=== PATIENT | female | born 1985 | race Caucasian/White ===

== ENCOUNTER → 2018-05-12 | Outpatient (CLI) | payer OTHER ==
[~2018-05-12] MED LIST: PREN-127 PO
[2018-05-12 11:58] LABS: PLATELET COUNT, AUTOMATED 362 K/uL (150-450)
== END ==
LOC: LAB 07:56
PROVIDERS: ATTEND Student in an Organized Health Care Education/Training Program
DX: Z34.01 Encounter for supervision of normal first pregnancy, first trimester (principal); R82.79 Other abnormal findings on microbiological examination of urine
CPT/HCPCS: 36415; 81001; 85025; 86592; 86703; 86762; 86850; 86900; 86901; 87088; 87340

== ENCOUNTER → 2018-05-22 | Outpatient (CLI) | payer OTHER | LOC: LAB 08:58 | PROVIDERS: ATTEND Student in an Organized Health Care Education/Training Program | DX: Z34.91 Encounter for supervision of normal pregnancy, unspecified, first trimester (principal) | CPT/HCPCS: 87491; 87591 ==

== ENCOUNTER → 2018-08-02 | Outpatient (CLI) | payer OTHER ==
--- NOTE | 2018-08-02 14:11 | RADIOLOGY IMAGING REPORT ---
[place] [facility] [place] Pam Brice : 1985 MR: [id number] V: [id number] EXAM DATE: ORDERING PHYSICIAN: ROB COHN TECHNOLOGIST: [place] [facility] [place] Pam Brice : 1985 Visit/Account:[id number] Date of Sevice: 08/02/2018 EXAMINATION: Ultrasound transabdominal OB > 14 weeks with anatomic evaluation HISTORY: 20 week anatomical survey COMPARISON: None. TECHNIQUE: Transabdominal imaging was performed for assessment of the fetus and maternal pelvic structures. T ransvaginal imaging was also performed to evaluate the placental edge relative to the cervical os. FINDINGS: Placenta: Anterior without previa. The placenta is low-lying with the distal tip 1.4 cm from the cer vix Uterus: Gravid, otherwise normal Cervix: Long and closed. , the cervical length is 4.5 cm Maternal Ovaries: Not visualized. Maternal and other adnexa findings: Not visualized Intrauterine gestations: One. presentation: Variable heart rate: Normal and regular at 153 bpm Amniotic fluid index: 16.9 cm Largest amniotic fluid pocket: 5.3 cm Gestational Parameters: BPD: 4.79 cm 20 weeks/ four days, 76% HC: 17.69 cm any weeks/ two days, 58% AC: 15.02 cm 20 weeks/ two days, 58% FL: 3.26 cm 20 weeks/ two days, 54% Average ultrasound age (AUA): 20 weeks/three days, PEDRITO 12/17/2018 Estimated gestational age by PEDRITO: 19 weeks/six days, PEDRITO 12/21/2018 Estimated weight (EFW): 340 grams +/- 50 grams EFW for PEDRITO: 67 percentile Anatomic Survey: Intracranial structures, 4-chamber heart, stomach, kidneys, urinary bladder, spine, 3-vessel cord and cord insertion are unremarkable other than mild dilatation of the renal pelves bilaterally. T he renal pelvis on the right measures 5.5 mm and on the left 6.4 mm. Two upper and two lower extremi ties visualized. Cardiac ventricular outflow tracts, palate and lips are unremarkable in appea donato. IMPRESSION: Single viable fetus in viable presentation with an estimated gestational age by [facility] ents of 20 weeks and three days. Estimated gestational age by LMP is 19 weeks and six days. Estimated weight is 340 g equivalent The renal pelves are mildly dilated as described above. Report Dictated By: Marce Allen MD at 08/02/2018 2:00 PM Report E-Signed By: Marce Allen MD at 08/02/2018 2:07 PM WSN:[id number]
== END ==
LOC: RAD 09:54
PROVIDERS: ATTEND Student in an Organized Health Care Education/Training Program
DX: Z36.9 Encounter for antenatal screening, unspecified (principal); Z3A.18 18 weeks gestation of pregnancy

== ENCOUNTER → 2018-09-25 | Outpatient (CLI) | payer OTHER ==
[~2018-09-25] MED LIST changes: +DESO15OI9 TP; +DIPH0.5S2 IM; +TRIA15OI20 TP
[2018-09-25 17:21] LABS: PLATELET COUNT, AUTOMATED 325 K/uL (150-450)
== END ==
LOC: LAB 16:16
PROVIDERS: ATTEND Advanced Practice Midwife
DX: Z34.82 Encounter for supervision of other normal pregnancy, second trimester (principal)
CPT/HCPCS: 36415; 82950; 85025

== ENCOUNTER → 2018-11-24 | Outpatient (CLI) | payer OTHER ==
[~2018-11-24] MED LIST changes: +CLOB15CR22 TP; +HYDR25CA13 PO
== END ==
LOC: LAB 09:26
PROVIDERS: ATTEND Obstetrics & Gynecology
DX: Z34.93 Encounter for supervision of normal pregnancy, unspecified, third trimester (principal)
CPT/HCPCS: 87081